=== PATIENT | female | born 1985 | race Hispanic/Latino ===

== ENCOUNTER 2017-08-22 20:03 | Emergency (ER) | payer BC ==
[2017-08-22 20:17] VITALS: BP 117/72; PULSE 84; RESP 16; TEMP 98.3; O2SAT 98
--- NOTE | 2017-08-22 20:37 | ED PDOC ---
Lower Extremity Pain/Injury Time Seen by Provider: 08/22/17 20:22 Chief Complaint (Nursing): Lower Extremity Problem/Injury Chief Complaint (Provider): Right calf pain History Per: Patient History/Exam Limitations: no limitations Onset/Duration Of Symptoms: Days (x1 week) Current Symptoms Are (Timing): Still Present Additional Complaint(s): Bushra Benítez is a 32 year old female, with no significant past medical history, who presents to the emergency department complaining of a dull right calf pain onset for x1 week. Patient reports she recently travelled to [place]. She denies being on control. She denies any recent injuries, chest pain, shortness of breath, fever, or chills. No further medical complaints. PMD: None provided Past Medical History Reviewed: Historical Data, Nursing Documentation, Vital Signs Vital Signs: Last Vital Signs Temp 98.3 F 08/22/17 20:12 Pulse 84 08/22/17 20:12 Resp 16 08/22/17 20:12 BP 117/72 08/22/17 20:12 Pulse Ox 98 08/22/17 20:12 - Medical History PMH: No Chronic Diseases - Surgical History Surgical History: No Surg Hx - Family History Family History: States: No Known Family Hx - Allergies Allergies/Adverse Reactions: Allergies Allergy/AdvReac Type Severity Reaction Status Date / Time Penicillins Allergy RASH Verified 08/22/17 20:16 Review of Systems ROS Statement: Except As Marked, All Systems Reviewed And Found Negative Constitutional: Negative for: Fever, Chills Cardiovascular: Negative for: Chest Pain Respiratory: Negative for: Shortness of Breath Musculoskeletal: Positive for: Leg Pain (right calf) Physical Exam - Reviewed Nursing Documentation Reviewed: Yes Vital Signs Reviewed: Yes - Physical Exam Appears: Positive for: Non-toxic Head Exam: Positive for: ATRAUMATIC, NORMOCEPHALIC Skin: Positive for: Normal Color, Warm, Dry Eye Exam: Positive for: Normal appearance Neck: Positive for: Painless ROM Respiratory: Negative for: Respiratory Distress Extremity: Positive for: Normal ROM (upper and lower extremities), Other ( stretching sensation with dorsiflexion). Negative for: Tenderness, Calf Tenderness, Deformity, Swelling Neurologic/Psych: Positive for: Alert, Oriented - ECG O2 Sat by Pulse Oximetry: 98 (RA) Pulse Ox Interpretation: Normal Medical Decision Making Medical Decision Making: Time: 20:22 Initial Impression: Initial Plan: --Duplex Lower Extrm Vein Right [US] Scribe Attestation: Documented by Noel Cummins, acting as a scribe for Vanda Crain PA-C Provider Scribe Attestation: All medical record entries made by the Scribe were at my direction and personally dictated by me. I have reviewed the chart and agree that the record accurately reflects my personal performance of the history, physical exam, medical decision making, and the department course for this patient. I have also personally directed, reviewed, and agree with the discharge instructions and disposition. Disposition - Clinical Impression Clinical Impression: Calf pain - Patient ED Disposition Is Patient to be Admitted: No Counseled Patient/Family Regarding: Diagnosis, Need For Followup - Disposition Disposition: Routine/Home Disposition Time: 21:20 Condition: GOOD Instructions: Muscle Strain Forms: [employer] ([place]ayan)
--- NOTE | 2017-08-22 21:19 | US ---
EXAM: US Duplex Right Lower Extremity Veins CLINICAL HISTORY: 32 years old, female; Pain; Leg, lower; Right; Additional info: Right calf pain TECHNIQUE: Real-time duplex ultrasound scan of the right lower extremity veins integrating B-mode two-dimensional vascular structure, Doppler spectral analysis, color flow Doppler imaging and compression. COMPARISON: No relevant prior studies available. FINDINGS: Deep veins: No DVT in the visualized common femoral, femoral, proximal deep femoral, popliteal or posterior tibial veins. The veins demonstrate normal color flow, are normally compressible, with normal phasic flow and/or augmentation response. IMPRESSION: No evidence of deep venous thrombosis in the visualized veins of the right lower extremity.
== END 2017-08-22 21:22 | disposition home or self-care (01) ==
LOC: H.ER 20:03
DX: M79.604 Pain in right leg (principal); Z88.0 Allergy status to penicillin